=== PATIENT | male | born 1940 | race Caucasian/White ===

== ENCOUNTER 2020-10-03 09:39 | Outpatient (CLI) | payer MEDICARE, SELFPAY ==
[2020-10-03 09:52] VITALS: BP 161/87; PULSE 72; RESP 20; TEMP 36.4; O2SAT 97; BMI 29.6
--- NOTE | 2020-10-03 10:04 | AMB.MCA ---
Patient Information Referred by: Abigail Symptom onset date: 10/02/20 COVID 19 common symptoms: positive fever(s), cough, non-productive cough and body aches COVID 19 other sytmptoms: negative chest pressure, chest pain, pleuritic pain or requiring oxygen Severity: moderate Treatment prior to arrival: none [facility] COVID test results: No Data to Display outside results available, scanned (Scanned in [facility]) Criteria/Plan Inclusion/Exclusion Criteria weight >/= 40kg, + direct test </= 10 days ago and symptom onset </= 10 days ago age >/= 65 not requiring hospitalization, not requiring oxygen (if not chronically on oxygen) and no increase oxygen requirement (if chronically on oxygen) Patient education patient/caregiver received/reviewed fact sheet, Emergency Use Authorization/unapproved drug status discussed with patient/caregiver, alternatives to this treatment discussed with patient/caregiver, risks and benefits of medication reviewed with patient/caregiver, patient/caregiver given opportunity for questions, which were answered and patient/caregiver consents to receiving Monoclonal Antibody Treatment Plan for treatment Meets criteria for Monoclonal Antibody infusion Ordering Monoclonal Antibody infusion for today
[2020-10-03 11:06] VITALS: BP 145/73; PULSE 64; RESP 16; TEMP 36.5; O2SAT 97
[2020-10-03 11:31] VITALS: BP 134/82; PULSE 60; RESP 14; TEMP 36.4; O2SAT 96
[2020-10-03 12:45] VITALS: BP 134/82; PULSE 60; RESP 14; TEMP 36.4; O2SAT 96
--- NOTE | 2020-10-08 15:20 | DCPLANNER ---
Addendum entered by Marylu Piedra 10/15/20 16:26: manager graphic called to check on patient 10 days after getting the BAM infusion. Patient stated that he was doing real good. Patient stated that he has not been admitted to the hospital. Addendum entered by Marylu Piedra 10/10/20 16:04: manager graphic called to check on patient after receiving the BAM infusion. Patient stated that he is feeling better today than he did yesterday, no fever, no shortness of breath, patient stated that he is still a little weak. Original Note: manager graphic had message that patient received the BAM infusion. manager graphic called patient to check on patient after receiving the infusion. Patient stated that he tolorated the infusion well. Before the infusion he felt a little weak. After the infusion, he stated that he got a fever that spiked to over 102 - but than after that broke that he is feeling great. He has has no fever since, he does say that he is a little weak. Patient will take care of primary care appointment.
== END 2020-10-03 12:45 | disposition home or self-care (01) ==
PROVIDERS: Referring Provider Hospitalist; Visit Provider Nurse Practitioner Family
DX: U07.1 COVID-19 (principal)
CPT/HCPCS: 96365; J7050